=== PATIENT | female | born 1970 | race Caucasian/White ===

== ENCOUNTER → 2021-04-02 16:43 | Outpatient (CLI) | payer BC, SELFPAY ==
--- NOTE | ~2021-04-02 | MM_ITS ---
EXAMINATION: MM scrn benny implant BI w ela HISTORY: Screening mammogram TECHNIQUE: Craniocaudal and mediolateral oblique 3-D tomosynthesis images with implant displacement a nd synthetic 2-D images were generated. Craniocaudal and mediolateral oblique views of the breasts wi thout implant displacement were obtained using full field digital mammography. CAD analysis was submi tted and interpreted. COMPARISON: No prior mammogram is available for comparison at this institution. BREAST PARENCHYMAL COMPOSITION: There are scattered areas of fibroglandular density. FINDINGS: There are bilateral subpectoral breast implants. There is no evidence of suspicious mass, c alcification, or architectural distortion to suggest malignancy in either breast. There has been no s uspicious interval change. IMPRESSION: 1. No mammographic evidence of malignancy. 2. Recommend routine screening mammography in one year. BI-RADS Category 1: Negative Reviewed, dictated and finalized at location A.
== END ==
PROVIDERS: PCP Family Medicine; Visit Provider Nurse Practitioner
DX: Z12.31 Encounter for screening mammogram for malignant neoplasm of breast (principal)
CPT/HCPCS: 77063; 77067

== ENCOUNTER → 2021-05-21 16:49 | Outpatient (CLI) | payer BC, SELFPAY ==
--- NOTE | ~2021-05-21 | XR_ITS ---
EXAMINATION:XR cervical spine 4-5V, XR thoracic spine 3V DATE: 05/21/2021 17:47 INDICATION: Dorsalgia with tightness over the neck and back. TECHNIQUE: AP, lateral, lateral swimmers and odontoid views of the cervical spine are provided. COMPARISON: None FINDINGS: Cervical spine: Alignment is normal. Odontoid is intact. Normal atlantoaxial interval. Vertebral body heights are no rmal. Moderate disc height loss at C4-C5 and mild disc height loss at C5-C6, both with posterior endp late osteophytes resulting in mild central canal stenosis. Moderate bilateral uncovertebral osteoarth ritis at C4-C5 and mild uncovertebral osteoarthritis bilaterally at C3-C4 and C6-C7. Is also multilev el mild cervical facet osteoarthritis. Prevertebral soft tissues are normal. Thoracic spine: Minimal thoracic dextrocurvature. Sagittal alignment is normal. Vertebral body heights are normal. Mo derate disc height loss at T5-T6 through T8-T9 with mild disc height loss in the more cephalad and ca udal thoracic spine. Visualized portions of the lungs are clear. Cardiomediastinal silhouette is norm al. IMPRESSION: 1. Mild to moderate cervical and thoracic spondylosis. Reviewed, dictated and finalized at location A. IDOR REDEVELOPMENT MANAGER IMPRESSION: 1. Mild to moderate cervical and thoracic spondylosis.
--- NOTE | ~2021-05-21 | XR_ITS ---
EXAMINATION: XR foot RT min 3V DATE: 05/21/2021 17:47 INDICATION: Right foot pain TECHNIQUE: Dorsoplantar, two oblique and lateral views of the right foot were obtained. COMPARISON: None. FINDINGS: Alignment is normal. No fracture. Mild polyarticular osteoarthritis at the first metatarsophalangeal and a few tarsal metatarsal and interphalangeal joints. Moderate-sized Achilles and plantar calcaneal spurs. Additional enthesophytes at the lateral malleolus at the dorsal aspect of the navicula and he ad of the talus. Soft tissues are unremarkable. IMPRESSION: 1. Degenerative skeletal changes including mild polyarticular osteoarthritis in the mid and forefoot and scattered enthesophytes in the hindfoot. Reviewed, dictated and finalized at location A. ING LOT MANAGER
== END ==
PROVIDERS: PCP Physician Assistant; Visit Provider Physician Assistant
DX: M47.813 Spondylosis without myelopathy or radiculopathy, cervicothoracic region (principal)
CPT/HCPCS: 72050; 72072; 73630

== ENCOUNTER 2022-05-07 00:53 | Day surgery (SDC) | payer BC, SELFPAY ==
[2022-04-28 13:14] VITALS: BMI 33.2
--- NOTE | 2022-05-07 11:26 | PM.HPGS ---
History of Present Illness History of Present Illness Consent: Risks, benefits, and alternatives have been discussed and questions answered. Patient agrees to proceed with procedure. Chief complaint: neoplasm screening Narrative: Sintia Burch is a 51 year old female referred for colon cancer screening. Review of Systems Review of Systems: All systems reviewed & are unremarkable except as noted in HPI and below PMFSH Past Medical History Medical History Hypertension Surgical History Surgical History H/O gastric sleeve Family History Family History Grandparent Diabetes mellitus Cerebrovascular accident Mother Hypertension Family history of cardiovascular disease Father Depression Sibling Hypertension HLD (hyperlipidemia) Social History Social History Smoking status: Never smoker Second hand tobacco smoke exposure: No Alcohol intake: current Drinks per week: 2 Alcohol use details: seldom; socially Substance use: never Substance use type: does not use Living arrangements: with family Meds Home Medications and Allergies Home Medications Medication Instructions Recorded Confirmed Type calcium carbonate 500 mg calcium 500 mg PO DAILY 04/22/22 04/28/22 History (1,250 mg) chewable tablet (Calcium 500) [id number] 45 mg-folic 1 cap PO DAILY 04/22/22 04/28/22 History acid 800 mcg-vit K 120 mcg capsule (Bariatric Multivitamins) psyllium husk 3.4 gram/5.4 gram 1 tbsp PO ONCE PRN Constipation 04/22/22 04/28/22 History oral powder (Metamucil) cyclobenzaprine 10 mg tablet 10 mg PO .HS PRN Pain 04/28/22 04/28/22 History cyclobenzaprine 10 mg tablet 10 mg PO DAILY 04/28/22 04/28/22 History Allergies Allergy/AdvReac Type Severity Reaction Status Date / Time No Known Allergies Allergy Verified 05/07/22 12:15 Exam Const: General: alert Orientation/consciousness: patient oriented x3 Resp: Auscultation: clear to auscultation bilaterally Cardio: Rhythm: regular rhythm GI: GI Palp: Yes Soft to palpation and No Tenderness to palpation present (GI) Neuro: General: patient oriented x3 Assessment and Plan Assessment and plan (1) Colon cancer screening: Code(s): Z12.11 - Encounter for screening for malignant neoplasm of colon Status: Acute Assessment and Plan: Colonoscopy with possible biopsy or polypectomy or cautery or injection of substances.
[2022-05-07 12:16] VITALS: BP 150/82; PULSE 72; RESP 18; TEMP 36.1; O2SAT 97
--- NOTE | 2022-05-07 12:16 | P.PNAN_ITS ---
Anes - Initial Pre Proc Eval Procedure: Operation Date: 05/07/22 13:30 Proposed Procedures p Screening Colonoscopy - Jose Barber MD Date/Time: 05/07/22 12:16 Surgeon: Jose Barber MD Pre Op Diagnosis: neoplasm screening Patient Data Age: 51 Gender: F Height: 1.6 m Weight: 85 kg Allergies Allergy/AdvReac Type Severity Reaction Status Date / Time No Known Allergies Allergy Verified 05/07/22 12:15 Home Medications Medication Instructions Recorded Confirmed Type calcium carbonate 500 mg calcium 500 mg PO DAILY 04/22/22 04/28/22 History (1,250 mg) chewable tablet (Calcium 500) isjnfbtr-ciefsjvz-joee 45 mg-folic 1 cap PO DAILY 04/22/22 04/28/22 History acid 800 mcg-vit K 120 mcg capsule (Bariatric Multivitamins) psyllium husk 3.4 gram/5.4 gram 1 tbsp PO ONCE PRN Constipation 04/22/22 04/28/22 History oral powder (Metamucil) cyclobenzaprine 10 mg tablet 10 mg PO .HS PRN Pain 04/28/22 04/28/22 History cyclobenzaprine 10 mg tablet 10 mg PO DAILY 04/28/22 04/28/22 History Patient hx anesthesia problems: none Family hx anesthesia problems: none Results Review: All pre-operative results and documents have been reviewed as part of the pre- operative evaluation. [facility] Past Medical History Medical History Hypertension Surgical History Surgical History H/O gastric sleeve Family History Family History Grandparent Diabetes mellitus Cerebrovascular accident Mother Hypertension Family history of cardiovascular disease Father Depression Sibling Hypertension HLD (hyperlipidemia) Social History Social History Smoking status: Never smoker Second hand tobacco smoke exposure: No Alcohol intake: current Drinks per week: 2 Alcohol use details: seldom; socially Substance use: never Substance use type: does not use Living arrangements: with family Anes - Eval Final PreProcedure Day of Procedure 05/07/22 12:16 Patient weight: normal Heart: regular rate and rhythm Lungs: clear to auscultation Airway: Mallampati scale class II Neurological: alert and oriented Last oral intake: >/= 8 hours ASA classification: II Emergent: no Anesthetic plan: proceed Anesthesia type and monitoring: general GIVS and standard monitoring Results Review: All pre-operative results and documents have been reviewed as part of the pre- operative evaluation. Informed Consent: The patient's anesthetic plan and its attendant risks and benefits were discussed with the patient/family/POA. Questions were solicited and answers provided to the satisfaction of the patient/family/POA.
[2022-05-07] MEDS: LACTATED RINGERS 1,000 ML 150 ML IV CONT (12:33)
--- NOTE | 2022-05-07 12:36 | SUR.PREOP ---
DR WOODALL NOTIFIED PT UNABLE TO PROVIDE URINE SAMPLE FOR TEST, PT HAS IUD, PT STATES HAS HAD A VASECTOMY. PER DR WOODALL NO NEED FOR URINE TEST.
[2022-05-07 13:19] VITALS: BP 106/63; PULSE 77; RESP 17; O2SAT 100
[2022-05-07 13:29] VITALS: BP 119/65; PULSE 78; RESP 20; O2SAT 100
[2022-05-07 13:39] VITALS: BP 131/69; PULSE 78; RESP 21; O2SAT 100
== END 2022-05-07 13:42 | disposition home or self-care (01) ==
PROVIDERS: PCP Family Medicine; Visit Provider Internal Medicine Gastroenterology
PROC: 0DJD8ZZ Inspection of Lower Intestinal Tract, Via Natural or Artificial Opening Endoscopic (ICD-10-PCS; CPT 45378; principal; 2022-05-07 13:30)
DX: Z12.11 Encounter for screening for malignant neoplasm of colon (principal); Z98.84 Bariatric surgery status
CPT/HCPCS: 45378; J2704; J7120

== ENCOUNTER → 2022-06-01 12:15 | Outpatient (CLI) | payer BC, SELFPAY ==
--- NOTE | ~2022-06-01 | MM_ITS ---
EXAMINATION: MM scrn benny implant BI w ela HISTORY: Screening mammogram TECHNIQUE: Craniocaudal and mediolateral oblique 3-D tomosynthesis images with implant displacement a nd synthetic 2-D images were generated. Craniocaudal and mediolateral oblique views of the breasts wi thout implant displacement were obtained using full field digital mammography. CAD analysis was submi tted and interpreted. COMPARISON: 04/02/2021 BREAST PARENCHYMAL COMPOSITION: There are scattered areas of fibroglandular density. FINDINGS: There is no evidence of suspicious mass, calcification, or architectural distortion to sugg est malignancy in either breast. There has been no suspicious interval change. IMPRESSION: 1. No mammographic evidence of malignancy. 2. Recommend routine screening mammography in one year. BI-RADS Category 1: Negative Reviewed, dictated and finalized at location A. ING MACHINE OPERATOR
== END ==
PROVIDERS: PCP Family Medicine; Visit Provider Nurse Practitioner
DX: Z12.31 Encounter for screening mammogram for malignant neoplasm of breast (principal)
CPT/HCPCS: 77063; 77067

== ENCOUNTER → 2023-07-28 11:32 | Outpatient (CLI) | payer OTHER, SELFPAY ==
--- NOTE | ~2023-07-28 | MM_ITS ---
EXAMINATION: MM scrn benny implant BI w ela HISTORY: Screening mammogram TECHNIQUE: Craniocaudal and mediolateral oblique 3-D tomosynthesis images with implant displacement a nd synthetic 2-D images were generated. Craniocaudal and mediolateral oblique views of the breasts wi thout implant displacement were obtained using full field digital mammography. CAD analysis was submi tted and interpreted. COMPARISON: 06/01/2022, 04/02/2021 BREAST PARENCHYMAL COMPOSITION: There are scattered areas of fibroglandular density. FINDINGS: There is no evidence of suspicious mass, calcification, or architectural distortion to sugg est malignancy in either breast. There has been no suspicious interval change. IMPRESSION: 1. No mammographic evidence of malignancy. 2. Recommend routine screening mammography in one year. BI-RADS Category 1: Negative Reviewed, dictated and finalized at location A. OMER RESOURCE SPECIALIST
== END ==
PROVIDERS: PCP Nurse Practitioner; Visit Provider Nurse Practitioner
DX: Z12.31 Encounter for screening mammogram for malignant neoplasm of breast (principal)
CPT/HCPCS: 77063; 77067

== ENCOUNTER 2024-08-02 14:25 | Outpatient (CLI) | payer OTHER, SELFPAY ==
--- NOTE | ~2024-08-02 | MM_ITS ---
EXAMINATION: MM scrn benny implant BI w ela HISTORY: Screening mammogram TECHNIQUE: Craniocaudal and mediolateral oblique 3-D tomosynthesis images with implant displacement a nd synthetic 2-D images were generated. Craniocaudal and mediolateral oblique views of the breasts wi thout implant displacement were obtained using full field digital mammography. CAD analysis was submi tted and interpreted. COMPARISON: No prior mammogram is available for comparison at this institution. BREAST PARENCHYMAL COMPOSITION: Not dense: There are scattered areas of fibroglandular density. FINDINGS: There is no evidence of suspicious mass, calcification, or architectural distortion to sugg est malignancy in either breast. There has been no suspicious interval change. IMPRESSION: 1. No mammographic evidence of malignancy. 2. Recommend routine screening mammography in one year. BI-RADS Category 1: Negative Reviewed, dictated and finalized at location A. ROLL LATHE OPERATOR
== END 2024-08-02 14:26 | disposition home or self-care (01) ==
LOC: MICIMG 14:27
PROVIDERS: PCP Nurse Practitioner; Visit Provider Nurse Practitioner Women's Health
DX: Z12.31 Encounter for screening mammogram for malignant neoplasm of breast (principal)
CPT/HCPCS: 77063; 77067

== ENCOUNTER 2025-05-01 09:10 | Outpatient (CLI) | payer OTHER, SELFPAY ==
--- OUTSIDE RECORDS SUMMARY | 2000-07-05 09:45 | XMS_ITS | Continuity of Care Document ---
Author Organization [facility] Address [address] [place] [address] Phone Care Team Providers Care Stone Driller Helper Name Role Phone Ji Alejandro DO Unavailable Unavailable Advance Directives Directive Yes / No Effective Date File Name No Information Encounters Encounter Description Practice Location Reason(s) For Visit Diagnoses Date Provider Providers Copied on Encounter [facility], [address], [place], [place], [id number], [place] tel:[phone] [facility] No Information Flavia Botello. [address] [facility], [place], [address], [place]. tel: [phone] Family History Family Member Type Diagnosis Age At Onset No Information Payers Payer name Insurance type Covered alliance party ID Authoriza tion(s) No Information Social History Type Description Quantity Date Captured Comments Sex Female Smoking Status No Information Chief Complaint And Reason For Visit No Information Reason For Referral Reason For Referral No Information History Of Present Illness Encounter Date Complaint History Of Prese nt Illness No Information Functional Status Date Functional Assessmen t No Information Instructions Date Instruction Additional Infor mation No Information Assessments Type Assessment Date No Information Patient Care Teams Name Effective Dates (start - stop) Status Members No Information
--- NOTE | ~2025-05-01 | CT_ITS ---
EXAMINATION: CTA chest PE protocol, 05/01/2025 9:35 CDT HISTORY: I82.402 - Acute embolism and thrombosis of unspecified de... COMPARISON: No comparisons available. TECHNIQUE: CTA examination is obtained with contrast CTA examination technique is performed with arterial phase of contrast-enhancement. 3-D reconstruction with thin MIP axial and MPR coronal imaging is provided Isovue 300, 92cc injected IV. One or more of the following dose reduction techniques were used: automated exposure control, adjustment of the mA and/or kV according to patient size, use of iterative reconstruction technique. FINDINGS: No significant coronary calcification is present ([id number]) LUNGS: No tracheomalacia. No bronchiectasis. Minimal emphysematous changes. Minimal pulmonary fibrotic changes. No honeycombing is identified. Minimal atelectasis noted in the right lower lobe. HEART AND PERICARDIUM: Mild cardiomegaly. AORTA: Normal caliber aorta.. PULMONARY ARTERIES: Contrast bolus adequate, there is subsegmental thrombus noted within the subsegmental branches of the right lower lobe, the thrombus appears peripherally in location and may be chronic, RV LV ratio 1.0. ADENOPATHY/MEDIASTINUM: None. LIMITED VIEWS OF THE ABDOMEN: Small hiatal hernia. Postsurgical changes noted in the stomach. OSSEOUS STRUCTURES: No sclerotic or lytic lesions. OVERLYING SOFT TISSUES: Partially imaged bilateral breast implants. THYROID: The thyroid is unremarkable. IMPRESSION: 1. Right lower lobe pulmonary embolism possibly chronic. Correlate clinically. Results called to the referring clinicians number immediately. The patient was sent to the ED Reviewed, dictated and finalized at location P.
[2025-05-01 09:39] LABS: Estimated Glomerular Filt Rate > 60
--- OUTSIDE RECORDS SUMMARY | 2025-05-01 09:59 | XMS_ITS | Clinical Summary ---
Author Organization [facility] Address [address] [place] [address] Care Team Providers Care Emd Special Education Teacher Name Role Phone Unavailable Primary Care Provider Unavailabl e Social History Tobacco Use Types Packs/Day Years Used Date Smoking Tobacco: Never Assessed Comments Unknown Sex and Gender Information Value Date Recorded Sex Assigned at Not on file Legal Sex Female 6:56 PM CDT Gender Identity Not on file Sexual Orientation Not on file Last Filed Vital Signs Vital Sign Reading Time Taken Comments Blood Pressure 122/78 08/29/2012 4:01 PM BOTTOM POLISHER Pulse 68 08/29/2012 4:01 PM BOTTOM POLISHER Temperature - - Respiratory Rate - - Oxygen Saturation - - Inhaled Oxygen Concentration - - Weight 98 kg (216 lb) 08/29/2012 4:01 PM BOTTOM POLISHER Height 161.3 cm (5' 3.5) 08/29/2012 4:01 PM BOTTOM POLISHER Body Mass Index 37.66 08/29/2012 4:01 PM BOTTOM POLISHER Plan of Treatment Health Maintenance Due Date Last Done Comments Cervical Cancer Screening Pa p Smear (Age 30 to 64) Every 3 Years 1972 Colorectal Cancer Screening Colonoscopy (10 Years) 1972 Annual Physical 1975 Hepatitis C 1990 DTaP, Tdap and Td Vaccines ( 1 - Tdap) 1991 Hepatitis B Vaccines (1 of 3 - 19+ 3-dose series) 1991 Cervical Cancer Screening Pa p with HPV Testing (Age 30 to 64) Every 5 Years 2002 Cervical Cancer Screening with HPV 2002 Mammogram Screening 2012 Pneumococcal Vaccine: 50+ Ye ars (1 of 1 - PCV) 2022 Zoster Vaccines (1 of 2) 2022 COVID-19 Vaccine (2024-2 6 season) 2025 Influenza Adult (#1) 2025 Hepatitis A Vaccines Aged Out No long er eligible based on patient's age to complete this topic Meningococcal B Vaccine Aged Out No l onger eligible based on patient's age to complete this topic Meningococcal Vaccine Aged Out No héctor elmer eligible based on patient's age to complete this topic RSV Immunizations Under 20 Months Aged Out No longer eligible based on patient's age to complete this topic
--- OUTSIDE RECORDS SUMMARY | 2025-05-01 09:59 | XMS_ITS | Clinical Summary ---
Author Organization [facility] Address [address] [place] [address] Care Team Providers Care Construction Specialist Name Role Phone Ifrah Lerma MD Primary Care Provider [phone] Source Comments [facility],non-owned Affiliates and Associated Physician Practices is amultiple site organization consisting of ambulatory clinics and hospital sitesin [place], [place], [place] and [place]. This disclosure is being madepursuant to the Care Everywhere program and may not contain all information available regarding this patient. Last updated 18.[facility] Allergies No known active allergies Medications * Be aware that medications may not be up to date on this document. Alwaysverify current medications with the patient. cyclobenzaprine (Flexeril) 10 MG tablet TAKE 1 TABLET BY MOUTH AT BEDTIME NEEDED FOR PAIN 02/07/2023 Active Active Problems Problem Noted Date Diagnosed Date Morbid obesity due to excess calories 03/31/2020 Family History Medical History Relation Name Comments Other Mother obesity Cancer - Ovarian Other aunt Relation Name Status Comments Father Alive Mother Alive Other aunt Alive Social History Tobacco Use Types Packs/Day Years Used Date Smoking Tobacco: Never Smokeless Tobacco: Never Alcohol Use Standard Drinks/Week Comments Yes 0 (1 standard drink = 0.6 oz pur e alcohol) occas Comments No Sex and Gender Information Value Date Recorded Sex Assigned at Female 03/26/2021 5:29 PM CDT Legal Sex Female 6:[address] Gender Identity Female 03/26/2021 5:29 PM CDT Sexual Orientation Straight 03/26/2021 5: 29 PM CDT Last Filed Vital Signs Vital Sign Reading Time Taken Comments Blood Pressure 120/82 04/08/2020 10:53 AM CDT Pulse 87 04/08/2020 10:53 AM CDT Temperature 36.9 C (98.5 F) 04/08/2020 10:53 AM CDT Respiratory Rate 18 04/01/2020 11:18 AM CDT Oxygen Saturation 98% 04/08/2020 10:53 AM CDT Inhaled Oxygen Concentration - - Weight 76.2 kg (168 lb) 04/01/2021 12:44 PM CDT Height 158 cm (5' 2.2) 04/01/2021 12:44 PM CDT Body Mass Index 30.53 04/01/2021 12:44 PM CDT Plan of Treatment Health Maintenance Due Date Last Done Comments COLOGUARD (AGES 45-75) - COL ON CA SCREENING 1972 COLON MONITORING 1972 COLONOSCOPY - COLON CA SCREENING 1972 CT COLONOGRAPHY - COLON CA SCREENING 1972 Colorectal Cancer Screening 1972 FIT - COLON CA SCREENING 1972 FLEX SIG - COLON CA SCREENING 1972 LIPID TESTING 1972 MAMMOGRAM 1972 HIV SCREENING 1987 HEPATITIS C SCREENING 08/14/1990 DTAP/TDAP/TD VACCINES (1 - Tdap) 1991 HEPATITIS B VACCINE (1 of 3 - 19+ 3-dose series) 1991 PAP SMEAR 1993 PNEUMOCOCCAL VACCINE 50+ (1 of 1 - PCV) 2022 ZOSTER VACCINE (1 of 2) 2022 DEPRESSION SCREENING 07/04/2024 COVID-19 VACCINE (1 - 2023-2 5 season) 2025 INFLUENZA VACCINE (#1) 2025 HIB VACCINE Aged Out No longer eligi ble based on patient's age to complete this topic HPV VACCINE Aged Out No longer eligi ble based on patient's age to complete this topic MENINGOCOCCAL (Group B) VACC INE SHARED DECISION-MAKING Aged Out No longer eligibl e based on patient's age to complete this topic MENINGOCOCCAL GROUPS A/C/Y/W VACCINE Aged Out No longer eligible b ased on patient's age to complete this topic Insurance [employer] Advance Directives * Full Code (Latest Code Status on File) Date Activated Date Inactivated Comments 03/31/2020 11:10 AM 04/01/2020 4:58 PM Care Teams Construction Specialist Relationship Specialty Start Date End Date Ifrah Lerma MD [address] [place] [address] PCP - General Family Medicine 06/06/19
--- OUTSIDE RECORDS SUMMARY | 2025-05-01 09:59 | XMS_ITS | Clinical Summary ---
Author Organization [address] Address [address] [place] [id number] Care Team Providers Care School Transportation Director Name Role Phone Ifrah Lerma MD Primary Care Provider [phone] Allergies No known active allergies Medications polyethylene glycol (MIRALAX) 17 gram/dose powder Take by mouth daily Active RIVAROXABAN 15 MG (42)-20 MG (9) TABLETS IN A STARTER PACKIndications: Popliteal vein thrombosis, right (HCC) Take 15 mg (1 tablet) TWICE a day for 21 days, then take 20 mg (1 tablet) once a day thereafter. 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 09/02 Morbid obesity due to excess calories 03/31/2020 Encounters Date Type Department Care Team Description 04/22/2025 7:37 PM CDT - 04/22/2025 8:33 PM CDT Emergency [facility] Emergency Department [address] [place] [address] Clay Virk MD Popliteal vein thrombosis, right (HCC) (Primary Dx) Discharge Disposition: Discharge to home or self care 03/29/2025 10:55 AM CDT - 03/29/2025 11:59 PM CDT Hospital Encounter [facility] Cardiology [address] [place] [address] Essential (primary) hypertension Discharge Disposition: Discharge to home or self care from Last 3 Months Surgical History Surgery Date Site/Laterality Comments SECTION 04/15/93; 04/13/96; 12/29/1999 BREAST SURGERY 07/04/2017 - 07/03/2018 REVISION GASTRIC RESTRICTIVE PROCEDURE FOR MORBID OBESITY 07/04/2019 - 07/03/2020 GASTRIC SLEEVE Medical History Medical History Date Comments H/O: HTN (hypertension) Social History Tobacco Use Types Packs/Day Years Used Date Smoking Tobacco: Never Smokeless Tobacco: Never Personal Safety Answer Date Recorded Have you ever been in or are you currently in a harmful physical or emotional relationship or is someone making you feel afraid or unsafe? 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 Gender Identity Not on file Sexual Orientation Not on file Obstetrics History Last Filed Vital Signs Vital Sign Reading Time Taken Comments Blood Pressure 125/82 04/22/2025 8:30 PM CDT Pulse 72 04/22/2025 8:30 PM CDT Temperature 36.8 C (98.2 F) 04/22/2025 6:58 PM CDT Respiratory Rate 16 04/22/2025 6:58 PM CDT Oxygen Saturation 98% 04/22/2025 8:30 PM CDT Inhaled Oxygen Concentration - - Weight 91.6 kg (202 lb) 04/22/2025 5:09 PM CDT Height 160 cm (5' 3) 12/06/2023 6:06 PM CDT Body Mass Index 35.78 12/06/2023 6:06 PM CDT Plan of Treatment Health Maintenance Due Date Last Done Comments Breast Cancer Screening-Mammogram 1972 Cervical Cancer Screening 1972 Colon Cancer Screening-Colonoscopy 1972 Depression Screening 1972 Hepatitis C Screening 1972 DTaP/Tdap/Td Vaccine (1 - Tdap) 1983 Hepatitis B Screening 1990 Regular Well Visit/Exam 18-64 1990 Zoster Vaccine (1 of 2) 2022 Influenza Vaccine (#1) 2025 Pneumococcal vaccine <65 Aged Out No longer eligible based on patient's age to complete this topic Procedures Procedure Name Priority Date/Time Associated Diagnosis Comments US VEIN DUPLEX LOWER EXTREMITY RIGHT LIMITED ED 04/22/2025 6:18 PM CDT ECG 12-LEAD Routine 03/29/2025 11:03 AM CDT Essential (primary) hypertension from Last 3 Months Results * US VEIN DUPLEX LOWER EXTREMITY RIGHT LIMITED, UNILATERAL (04/22/2025 6:18 PM CDT) Anatomical Region Laterality Modality Vascular Right Ultrasound 04/22/2025 6:20 PM CDT Narrative 04/22/2025 6:30 PM CDT EXAM DESCRIPTION: US VEIN DUPLEX LOWER EXTREMITY RIGHT LIMITED, UNILATERAL REASON FOR STUDY: Sent by PCP to rule out DVT TECHNIQUE: Duplex scan using the B-mode, spectral Doppler, and color-flow Doppler of the deep venous system of the right lower extremity was performed. Images stored on PACS. COMPARISON: None FINDINGS: Lack of compressibility is questioned in the popliteal vein and the greater saphenous vein. There is some flow evident in these veins. The femoral, common femoral and calf veins appear to be patent. The peroneal vein is not well seen. IMPRESSION: Findings are concerning for nonocclusive thrombus within the greater saphenous and popliteal veins. THIS IS AN ELECTRONICALLY VERIFIED FINAL REPORT 04/22/2025 6:30 PM - Electronically signed by Jose Angel Villarreal M.D. KH: RONAL Report ID: [id number] Reading Location: [id number] Procedure Note Jose Angel Villarreal MD - 04/22/2025 EXAM DESCRIPTION: US VEIN DUPLEX LOWER EXTREMITY RIGHT LIMITED,UNILATERAL REASON FOR STUDY: Sent by PCP to rule out DVT TECHNIQUE: Duplex scan using the B-mode, spectral Doppler, and color-flow Doppler of the deep venous system of the right lower extremity was performed. Images stored on PACS. COMPARISON: None FINDINGS: Lack of compressibility is questioned in the popliteal vein and thegreater saphenous vein. There is some flow evident in these veins. The femoral, common femoral and calf veins appear to be patent. The peroneal vein isnot well seen. IMPRESSION: Findings are concerning for nonocclusive thrombus within the greater saphenous and popliteal veins. THIS IS AN ELECTRONICALLY VERIFIED FINAL REPORT 04/22/2025 6:30 PM - Electronically signed by Jose Angel Villarreal M.D. KH: RONAL Report ID: [id number] Reading Location: [place] [address] [place] [facility] HDEZ IMG US PROCEDURES Final Resu lt * ECG 12 lead (03/29/2025 11:03 AM CDT) 03/29/2025 11:0 1 AM CDT Narrative [facility] - 03/29/2025 12:13 PM CDT Vent Rate: 59 bpm RR Interval: 1008 msec RI Interval: 160 msec QRS Duration: 72 msec QT Interval: 366 msec QTC Interval: 365 msec P-R-T [place]: 34 - -2 - -39 degrees IMPRESSION: SINUS BRADYCARDIA NONSPECIFIC T-WAVE ABNORMALITY BORDERLINE ECG Electronically Signed By: Jamil Balderas MD [facility] Ifrah Lerma MD ECG ORDERABLES Final Result [facility] from Last 3 Months Insurance [facility] OPEN ACCESS Care Teams School Transportation Director Relationship Specialty Start Date End Date Ifrah Lerma MD [address] [place] [address] PCP - General Family Medicine 04/22/25
== END 2025-05-01 09:11 | disposition home or self-care (01) ==
DX: I82.402 Acute embolism and thrombosis of unspecified deep veins of left lower extremity (principal); R05.9 Cough, unspecified; I82.811 Embolism and thrombosis of superficial veins of right lower extremity
CPT/HCPCS: 71275; Q9967

== ENCOUNTER 2025-05-01 10:21 | Observation (INO) | payer OTHER, SELFPAY ==
--- OUTSIDE RECORDS SUMMARY | 2000-07-05 09:45 | XMS_ITS | Continuity of Care Document ---
Author Organization [facility] Address [address] [place] [address] Phone Care Team Providers Care Wood Milling Machine Tender Name Role Phone Ji Alejandro DO Unavailable Unavailable Advance Directives Directive Yes / No Effective Date File Name No Information Encounters Encounter Description Practice Location Reason(s) For Visit Diagnoses Date Provider Providers Copied on Encounter [facility], [address], [place], [place], [id number], [place] tel:[phone] [facility] No Information Flavia Botello. [address] [facility], [place], [address], [place]. tel: [phone] Family History Family Member Type Diagnosis Age At Onset No Information Payers Payer name Insurance type Covered republican ID Authoriza tion(s) No Information Social History [...]
[2025-05-01] VITALS (8 sets, daily range): BP systolic 117–159; BP diastolic 74–99; PULSE 60–72; RESP 16–20; TEMP 36.5–36.9; O2SAT 93–100; BMI 37.5; BMI 36.5
--- NOTE | ~2025-05-01 | US_ITS ---
BILATERAL LOWER EXTREMITY VENOUS DUPLEX Clinical History: Patient has PE/dvt . Comparison: None. Technique: Grayscale, color, duplex/spectral Doppler sonography bilateral lower extremities. Findings: Bilateral common femoral, femoral, popliteal, and calf veins compressible and color Doppler patent. Normal augmentation with distal compression. No internal echoes. Thrombus right greater and lesser saphenous veins. IMPRESSION: 1. No DVT either leg. 2. Right greater and lesser saphenous vein thrombus. Reviewed, dictated and finalized at location R.
--- NOTE | 2025-05-01 10:59 | ED.RECABL ---
HPI - Recheck/Abnormal Lab/Rx General Chief Complaint: Recheck/Abnormal Lab/Rx Stated Complaint: ct scan showed PE Time Seen by Provider: 05/01/25 10:51 Source: patient Mode of arrival: ambulatory Limitations: no limitations History of Present Illness HPI narrative: Janet is a 54-year-old female patient presenting to the emergency room today with complaints of a dry cough for the past few days. She saw her PCP yesterday and they ordered a CT scan to rule out PE as she recently had a right side blood clot. CTA chest was done today and shows right lower lobe PE. Patient had tummy tuck surgery on April 08. Was dx with DVT 1.5 weeks ago. She was started on Xeralto-starter pack and has taken 6 days of the Rx. She currently denies any chest pain or shortness of breath. Related Data Home Medications ?Medication ?Instructions ?Recorded ?Confirmed ?Last Taken ?Type rivaroxaban 15 mg tablet (Xarelto) 15 mg PO BID 04/30/25 04/30/25 Unknown History Allergies Allergy/AdvReac Type Severity Reaction Status Date / Time No Known Allergies Allergy Verified 05/01/25 10:25 Review of Systems Review of Systems: Pertinent positives per HPI. Patient denies any fever, chills, rash, headache, visual changes, dizziness, cough, shortness of breath, chest pain, palpitations, nausea, vomiting, diarrhea, constipation, abdominal pain, or any urinary issues. [facility] Past Medical History Medical History Hypertension Surgical History Surgical History H/O abdominoplasty (~04/08/25) H/O gastric sleeve Family History Family History Grandparent Diabetes mellitus Cerebrovascular accident Mother Hypertension Family history of cardiovascular disease Father Depression Sibling Hypertension HLD (hyperlipidemia) Social History Social History Smoking status: Never smoker Second hand tobacco smoke exposure: No Alcohol intake: current Drinks per week: 2 Alcohol use details: seldom; socially Substance use: never Substance use type: does not use Lack of Transportation: No Lack of Food: Never True Current Housing: I Have Housing Concerned About Future Housing: No Difficulty Paying Gas/Electric Bills: No Difficulty Paying for Meds: No Currently Unemployed: No Education: Decline to Answer Difficulty w/ Childcare or Family Care: No Living arrangements: with family Occupation/Education: occupation Gender identity (if verbalized by the patient): Female Spiritual care concerns: No Agree to blood products: Yes Comments At the time of my signature, I reviewed and agree with the nursing past medical, surgical, social, and family history. There is no relevant family history pertinent to the patient complaint. Exam Narrative: General: Well-developed, well nourished, in no apparent distress Head: Normocephalic, atraumatic Eyes: Pupils equally round and reactive to light bilaterally, EOM intact, sclera and conjunctive clear, no discharge, lids normal Ears: TMs intact and clear, ear canals clear, no drainage, grossly hearing normal. Nose: Nares patent, no discharge, no inflammation, no sinus tenderness. Mouth: Oral pharynx without lesions or masses, good dentition, MMM. Neck: Supple, trachea midline, no enlargement of anterior or posterior cervical nodes, no thyroid masses or goiter palpable. Cardio: Regular rate and rhythm, s1 and s2 normal, no murmur appreciated. Resp: Clear to auscultation bilaterally, no rhonchi, rales, wheezing or rubs Musculoskeletal: No deformity, non-tender to palpation, grossly normal range of motion, muscle strength strong and equal, peripheral pulse strong, no pitting edema, no cyanosis, normal gait and station Course Course Emergency Course: Portions of this record may have been created with voice recognition software. Vital Signs Vital signs: Vital Signs Temperature 36.6 C 05/01/25 10:27 Pulse Rate 69 05/01/25 10:27 Respiratory Rate 16 05/01/25 10:27 Blood Pressure 159/99 H 05/01/25 10:27 Pulse Oximetry 99 05/01/25 10:27 Temperature 36.6 C 05/01/25 10:27 Pulse Rate 70 05/01/25 15:01 Respiratory Rate 20 05/01/25 15:01 Blood Pressure 146/84 H 05/01/25 15:01 Pulse Oximetry 100 05/01/25 15:01 Vital signs reviewed MDM - Recheck/Abnormal Lab/Rx MDM Narrative Medical decision making narrative: At the time of visit patient is resting comfortably on the exam table. Patient appears to be nontoxic. Complaints of a dry cough for the past few days. She saw her PCP yesterday and they ordered a CT scan to rule out PE as she recently had a right side blood clot. CTA chest was done today and shows right lower lobe PE. Patient had tummy tuck surgery on April 08. Was dx with DVT 1.5 weeks ago. She was started on Xeralto-starter pack and has taken 6 days of the Rx. She currently denies any chest pain or shortness of breath. Labs: CBC shows white blood cell count was 6.2, H&H of 12.3 and 36.4, platelet count was 192, PT was 16.9, INR 1.4, APTT is 31.4 chemistry has normal electrolytes, BUN of 13, creatinine 0.69, GFR greater than 60, for function test within normal limits, Diagnostics: CTA chest to R/O PE shows right lower lobe pulmonary embolism possibly chronic. Correlate clinically. Bilateral Venous Doppler study was performed and was negative for any DVT of the left lower extremity, shows a thrombus and the right saphenous vein. Medications: Lovenox 90 given in the ED Plan: Patient has PE in the right lower lobe as well as a thrombus to the right saphenous vein. Discussed patient's case with Dr. Caldwell. Recommend admission for 23 hour observation and giving the patient Lovenox every 12 hours. Discussed patient's case with Albert-hospitalist and she accepts patient to med/surg with tele. Patient notified of results and agrees to admission. Differential Diagnosis Differential diagnosis: Likely other (PE, DVT, URI) Lab Data 05/01/25 11:25 05/01/25 11:25 Labs: Lab Results 05/01/25 05/01/25 Range/Units 11:25 11:26 WBC 6.2 (4.5-10.0) K/mm3 RBC 4.03 L (4.2-5.4) M/mm3 Hgb 12.3 (12.0-15.0) g/dL Hct 36.4 L (37.0-47.0) % MCV 90.3 (80-100) fl MCH 30.5 (26-34) pg MCHC 33.8 (32-36) g/dl RDW 12.9 (11.5-14.5) % Plt Count 192 (150-375) k/mm3 MPV 11.5 H (7.4-10.4) fl Immature Gran % (Auto) 0.5 (0-0.5) % Neut % (Auto) 71.0 (45.5-73.1) % Lymph % (Auto) 17.7 L (18.3-44.2) % Merrick % (Auto) 8.7 H (2.6-8.5) % Eos % (Auto) 1.8 (0-4.4) % Baso % (Auto) 0.3 (0.2-1.2) % Lymph # (Auto) 1.10 (0.9-3.2) K/mm3 [place] # (Auto) 0.5 (0.1-0.6) K/mm3 Eos # (Auto) 0.1 (0-0.3) K/mm3 Baso # (Auto) 0.0 (0.0-0.1) K/mm3 Abs Immat Gran (auto) 0.03 (0.00-0.031) K/mm3 Absolute Neuts (auto) 4.4 (1.3-6.7) K/mm3 Absolute Nucleated RBC 0.000 (0.0-0.012) K/mm3 Nucleated RBC % 0.0 (0.0-0.2) % PT 16.9 H (11.1-14.7) Seconds INR 1.4 APTT 31.4 (22.3-36.8) Seconds Sodium 137 (137-145) mmol/L Potassium 3.7 (3.4-5.0) mmol/L Chloride 103 (98-107) mmol/L Carbon Dioxide 28 (22-30) mmol/L Anion Gap 6 (4-12) mmol/L BUN 13 (7-17) mg/dL Creatinine 0.69 L (0.7-1.0) mg/dL Estim Creat Clear Calc 89 ml/min Estimated GFR > 60 (59 - ) Glucose 88 (65-110) mg/dL Calcium 8.8 (8.4-10.2) mg/dL Total Bilirubin 0.8 (0.2-1.3) mg/dL AST 21 (14-36) U/L ALT 20 (6-35) U/L Alkaline Phosphatase 85 (38-126) U/L Total Protein 6.7 (6.3-8.2) g/dL Albumin 4.0 (3.5-5.1) g/dL Discharge Plan Discharge Clinical Impression: Pulmonary embolism, Thrombosis of right saphenous vein Patient Disposition: Still a Patient Condition: Stable Time of Disposition: 13:54 Quality NIHSS Nursing Documentation ED NIHSS nursing documentation: reviewed/agree
--- NOTE | 2025-05-01 11:27 | ECG_ITS ---
Test Date: 2025-05-01 11:35:17 Measurements Intervals [place] Rate: 57 P: 26 MI: 154 QRS: -5 QRSD: 90 T: -13 QT: 418 QTc: 410 Interpretive Statements SINUS BRADYCARDIA BORDERLINE R WAVE PROGRESSION, ANTERIOR LEADS CONSIDER INFERIOR INFARCT, AGE INDETERMINATE T WAVE ABNORMALITY IN ANTERIOR LEADS- CONSIDER ISCHEMIA ABNORMAL ECG No previous ECG available for comparison Electronically Signed On 05-01-2025 11:59:22 CDT by Jayjay Serna D.O.
[2025-05-01 11:35] LABS: Hematocrit 36.4 % (37.0-47.0); Hemoglobin 12.3 g/dL (12.0-15.0); Immature Granulocyte Percent A 0.5 % (0-0.5); Lymphocytes Absolute Auto 1.10 K/mm3 (0.9-3.2); Mean Corpuscular HGB Conc 33.8 g/dl (32-36); Mean Corpuscular Hemoglobin 30.5 pg (26-34); Mean Corpuscular Volume 90.3 fl (80-100); Nucleated Red Blood Cells Absolute Auto 0.000 K/mm3 (0.0-0.012); Nucleated Red Blood Cells Perc 0.0 % (0.0-0.2); Platelet Count Result 192 k/mm3 (150-375); Red Blood Count 4.03 M/mm3 (4.2-5.4); White Blood Count 6.2 K/mm3 (4.5-10.0)
--- OUTSIDE RECORDS SUMMARY | 2025-05-01 11:38 | XMS_ITS | Clinical Summary ---
Author Organization [address] Address [address] [place] [id number] Care Team Providers Care Police Stenographer Name Role Phone Ifrah Lerma MD Primary Care Provider [phone] Allergies No known active allergies Medications polyethylene [...] CDT - 04/22/2025 8:33 PM CDT Emergency [facility] Emergency Department 1 [place] [address] Clay Virk MD Popliteal vein thrombosis, right (HCC) (Primary Dx) Discharge Disposition: Discharge to home or self care 03/29/2025 10:55 AM CDT - 03/29/2025 11:59 PM CDT Hospital Encounter [facility] Cardiology 1 [place] [address] Essential (primary) hypertension Discharge Disposition: Discharge to [...] on file 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 KH: RONAL Report ID: [id number] Reading Location: [id number] Procedure Note Jose Angel Villarreal MD - [...] Angel Villarreal M.D. KH: RONAL Report ID: [id number] Reading Location: [place] [address] [place] [facility] HDEZ IMG US PROCEDURES Final Resu lt * ECG 12 lead (03/29/2025 11:03 AM CDT) 03/29/2025 11:0 1 AM CDT Narrative [facility] - 03/29/2025 12:13 PM CDT Vent Rate: 59 bpm RR Interval: 1008 msec [place] Interval: 160 msec QRS Duration: 72 msec QT Interval: 366 msec QTC Interval: 365 msec P-R-T [place]: 34 - -2 - -39 degrees IMPRESSION: SINUS BRADYCARDIA NONSPECIFIC T-WAVE ABNORMALITY BORDERLINE ECG Electronically Signed By: Jamil Bladeras MD [facility] Ifrah Lerma MD ECG ORDERABLES Final Result [facility] from Last 3 Months Insurance [facility] OPEN ACCESS Care Teams Police Stenographer Relationship Specialty Start Date End Date Ifrah Lerma MD [address] [place] [address] PCP - General Family Medicine 04/22/25
--- OUTSIDE RECORDS SUMMARY | 2025-05-01 11:38 | XMS_ITS | Clinical Summary ---
Author Organization [facility] Address [address] [place] [id number] Care Team Providers Care Lot Technician Name Role Phone Unavailable Primary Care Provider [...] Comments Blood Pressure 122/78 08/29/2012 4:01 PM CAREERS ADVISER Pulse 68 08/29/2012 4:01 PM CAREERS ADVISER Temperature - - Respiratory Rate - - Oxygen Saturation - - Inhaled Oxygen Concentration - - Weight 98 kg (216 lb) 08/29/2012 4:01 PM CAREERS ADVISER Height 161.3 cm (5' 3.5) 08/29/2012 4:01 PM CAREERS ADVISER Body Mass Index 37.66 08/29/2012 4:01 PM CAREERS ADVISER Plan of Treatment Health Maintenance Due Date [...]
--- OUTSIDE RECORDS SUMMARY | 2025-05-01 11:38 | XMS_ITS | Clinical Summary ---
Author Organization [facility] Address [address] [place] [address] Care Team Providers Care Director Of Solutions Architecture Name Role Phone Ifrah Lerma MD Primary Care Provider [phone] Source Comments [facility],non-owned Affiliates and Associated Physician Practices is amultiple site organization consisting of ambulatory clinics and hospital sitesin [place], [place], [place] and [place]. This disclosure is being madepursuant to the Care Everywhere program and may not contain all information available regarding this patient. 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
[2025-05-01 11:48] LABS: INR 1.4; Partial Thromboplastin Time 31.4 Seconds (22.3-36.8); Prothrombin Time 16.9 Seconds (11.1-14.7)
[2025-05-01 11:53] LABS: Alanine Aminotransferase 20 U/L (6-35); Albumin Level 4.0 g/dL (3.5-5.1); Alkaline Phosphatase 85 U/L (38-126); Anion Gap 6 mmol/L (4-12); Aspartate Amino Transferase 21 U/L (14-36); Bilirubin,Total 0.8 mg/dL (0.2-1.3); Blood Urea Nitrogen 13 mg/dL (7-17); Calcium 8.8 mg/dL (8.4-10.2); Carbon Dioxide 28 mmol/L (22-30); Chloride 103 mmol/L (98-107); Estimated CRCL calculation 89 ml/min; Estimated Glomerular Filt Rate > 60; Glucose 88 mg/dL (65-110); Potassium 3.7 mmol/L (3.4-5.0); Sodium 137 mmol/L (137-145); Total Protein 6.7 g/dL (6.3-8.2)
[2025-05-01] MEDS: ENOXAPARIN 100 MG/ML SYRINGE 90 MG SUB-Q ×2 (12:47→20:35)
--- OUTSIDE RECORDS SUMMARY | 2025-05-01 13:13 | XMS_ITS | Clinical Summary ---
Author Organization [facility] Address [address] [place] [address] Care Team Providers Care Chinchilla Farmer Name Role Phone Unavailable Primary Care Provider [...] Comments Blood Pressure 122/78 08/29/2012 4:01 PM ELECTRONICS TECHNOLOGY DEPARTMENT CHAIR Pulse 68 08/29/2012 4:01 PM ELECTRONICS TECHNOLOGY DEPARTMENT CHAIR Temperature - - Respiratory Rate - - Oxygen Saturation - - Inhaled Oxygen Concentration - - Weight 98 kg (216 lb) 08/29/2012 4:01 PM ELECTRONICS TECHNOLOGY DEPARTMENT CHAIR Height 161.3 cm (5' 3.5) 08/29/2012 4:01 PM ELECTRONICS TECHNOLOGY DEPARTMENT CHAIR Body Mass Index 37.66 08/29/2012 4:01 PM ELECTRONICS TECHNOLOGY DEPARTMENT CHAIR Plan of Treatment Health Maintenance Due Date [...]
--- OUTSIDE RECORDS SUMMARY | 2025-05-01 13:13 | XMS_ITS | Clinical Summary ---
Author Organization [address] Address [address] [place] [id number] Care Team Providers Care Horse Show Judge Name Role Phone Ifrah Lerma MD Primary Care Provider [phone] Allergies No known active allergies Medications polyethylene [...] CDT - 04/22/2025 8:33 PM CDT Emergency [facility] Emergency Department 1 [place] [address] Clay Virk MD Popliteal vein thrombosis, right (HCC) (Primary Dx) Discharge Disposition: Discharge to home or self care 03/29/2025 10:55 AM CDT - 03/29/2025 11:59 PM CDT Hospital Encounter [facility] Cardiology 1 [place] [address] Essential (primary) hypertension Discharge Disposition: Discharge to [...] on file 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 KH: RONAL Report ID: [id number] Reading Location: [id number] Procedure Note Jose Angel Villarreal MD - [...] Angel Villarreal M.D. KH: RONAL Report ID: [id number] Reading Location: [place] [address] us Cosme HEDZ IMG US PROCEDURES Final Resu lt * ECG 12 lead (03/29/2025 11:03 AM CDT) 03/29/2025 11:0 1 AM CDT Narrative [facility] - 03/29/2025 12:13 PM CDT Vent Rate: 59 bpm RR Interval: 1008 msec ID Interval: 160 msec QRS Duration: 72 msec QT Interval: 366 msec QTC Interval: 365 msec P-R-T [place]: 34 - -2 - -39 degrees IMPRESSION: SINUS BRADYCARDIA NONSPECIFIC T-WAVE ABNORMALITY BORDERLINE ECG Electronically Signed By: Jamil Balderas MD [facility] Ifrah Lerma MD ECG ORDERABLES Final Result [facility] from Last 3 Months Insurance [facility] OPEN ACCESS Care Teams Horse Show Judge Relationship Specialty Start Date End Date Ifrah Lerma MD [address] [place] [address] PCP - General Family Medicine 04/22/25
--- OUTSIDE RECORDS SUMMARY | 2025-05-01 13:13 | XMS_ITS | Clinical Summary ---
Author Organization [facility] Address [address] [place] [address] Care Team Providers Care Client Partner Name Role Phone Ifrah Lerma MD Primary Care Provider [phone] Source Comments [facility],non-owned Affiliates and Associated Physician Practices is amultiple site organization consisting of ambulatory clinics and hospital sitesin [place], [place], [place] and [place]. This disclosure is being madepursuant to the Care Everywhere program and may not contain all information available regarding this patient. 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
--- NOTE | 2025-05-01 15:57 | ADMGEN ---
This patient, Sintia Burch, was admitted to 2 Medical Room 240-01. Patient/family oriented to hospital policies and general routines including ID bracelet, bed and alarms, visiting hours, pain management, procedures, bathroom and other care routines, personal items, smoking policy, room service/diet, and visiting hours. Information on how to activate the Rapid Response Team has been discussed. Patient/Family are encouraged to report perceived risks to care and to ask questions if they do not understand what they are told or what they should do.
--- NOTE | 2025-05-01 16:41 | PM.IMHP ---
H&P: HPI History of Present Illness Date/Time: 05/01/25 16:41 Chief Complaint: PE on CT scan Narrative: 54-year-old female with a past medical history of hypertension and gastric sleeve presents to the ED on 05/01/2025 after a CTA chest revealed right lower lobe PE after having a dry cough for about 1 week. Patient had a tummy tuck on 04/08 and had a surgical follow-up on 04/18. At the time of the follow-up, she thought she had pulled a muscle in her right leg. The day after her follow-up, she began having pain down and across her leg and noticed a ?soft spongy bump? which prompted her to call her doctor on 04/22/2025 who recommended presenting at the ED to rule out DVT. Right lower extremity Doppler revealed a nonocclusive thrombus within the greater saphenous and popliteal veins. She was discharged from the ED and prescribed Xarelto which she has been compliant with taking 15 mg b.i.d.. The bump in her leg is getting smaller and the pain is improving. Patient went to her PCP on 04/30 and mention she had a dry cough for about 1 week. CTA chest was ordered and completed today, 05/01. Chest CTA revealed a right lower lobe pulmonary embolism possibly chronic. She was directed to the ED. She denies chest pain, shortness a breath, fever. Initial vital signs 139/99, 69 HR, respirations 16, afebrile and 99% on room air. Lab work is largely unremarkable. PT 16.9 EKG with sinus bradycardia, borderline R-wave progression in the anterior leads, age indeterminate T-wave abnormality in anterior leads CTA chest with with right lower lobe pulmonary embolism possibly chronic. Bilateral Venous Doppler study was performed and was negative for DVT in both legs but did show a right greater and lesser saphenous vein thrombus Review of Systems Review of Systems: All systems reviewed & are unremarkable except as noted in HPI and below PMFSH Past Medical History Medical History Hypertension Surgical History Surgical History H/O abdominoplasty (~04/08/25) H/O gastric sleeve Family History Family History Grandparent Diabetes mellitus Cerebrovascular accident Mother Hypertension Family history of cardiovascular disease Father Depression Sibling Hypertension HLD (hyperlipidemia) Social History Social History Smoking status: Never smoker Second hand tobacco smoke exposure: No Alcohol intake: never Drinks per week: 2 Alcohol use details: seldom; socially Substance use: never Substance use type: does not use Lack of Transportation: No Lack of Food: Never True Current Housing: I Have Housing Concerned About Future Housing: No Difficulty Paying Gas/Electric Bills: No Difficulty Paying for Meds: No Currently Unemployed: No Education: Associate Degree Difficulty w/ Childcare or Family Care: No Living arrangements: with family Occupation/Education: occupation Gender identity (if verbalized by the patient): Female Spiritual care concerns: No Agree to blood products: Yes Meds Home Medications and Allergies Home Medications ?Medication ?Instructions ?Recorded ?Confirmed ?Type metoprolol succinate 25 mg 25 mg PO DAILY #30 tabs 02/22/25 05/01/25 Rx tablet,extended release 24 hr buspirone 5 mg tablet See Rx Instructions .Route 04/14/25 05/01/25 Rx .COMPLEX #40 tabs rivaroxaban 15 mg tablet (Xarelto) 15 mg PO BID 04/30/25 05/01/25 History Allergies Allergy/AdvReac Type Severity Reaction Status Date / Time No Known Allergies Allergy Verified 05/01/25 16:00 Vital Signs Vital Signs - 24 hr 05/01/25 10:27 05/01/25 12:54 05/01/25 14:08 Temperature 97.8 F Pulse Rate 69 60 61 Respiratory Rate 16 20 17 Blood Pressure 159/99 H 150/90 H 139/77 Pulse Oximetry 99 93 99 05/01/25 15:01 05/01/25 15:54 05/01/25 16:00 Temperature 98.4 F Pulse Rate 70 72 65 Respiratory Rate 20 18 Blood Pressure 146/84 H 139/89 Pulse Oximetry 100 100 Exam Narrative: GENERAL: non-toxic appearing, in no acute distress. HEAD: Normocephalic, atraumatic. EYES: PERRLA. Conjunctivae clear. NOSE: Normal no drainage. THROAT: Pharynx clear, no exudate. NECK: Trachea midline. No adenopathy, no masses. RESPIRATORY: Airway patent, respirations nonlabored. CTA. No pain on inspiration CARDIOVASCULAR: Regular rate and rhythm BREASTS: Defer GASTROINTESTINAL: Abdomen is soft and nontender. No organomegaly. Bowel sounds normal in all quadrants. GENITOURINARY: Defer MUSCULOSKELETAL: Moves all extremities. No gross deformities. No calf tenderness. No edema to bilateral lower extremities SKIN: Warm, dry, normal color. NEURO: A&O X4. Speech clear PSYCHIATRIC: Normal interaction H&P: Results Labs Labs: Short CBC 05/01/25 Range/Units 11:25 WBC 6.2 (4.5-10.0) K/mm3 Hgb 12.3 (12.0-15.0) g/dL Hct 36.4 L (37.0-47.0) % Plt Count 192 (150-375) k/mm3 BMP 05/01/25 11:25 Sodium 137 Potassium 3.7 Chloride 103 Carbon Dioxide 28 BUN 13 Creatinine 0.69 L Glucose 88 Calcium 8.8 Liver Function 05/01/25 Range/Units 11:25 Total Bilirubin 0.8 (0.2-1.3) mg/dL AST 21 (14-36) U/L ALT 20 (6-35) U/L Alkaline Phosphatase 85 (38-126) U/L Albumin 4.0 (3.5-5.1) g/dL Assessment and Plan Assessment and plan (1) Pulmonary embolism: Qualifiers: Pulmonary embolism type: single subsegmental (without acute cor pulmonale) Qualified Code(s): I26.93 - Single subsegmental thrombotic pulmonary embolism without acute cor pulmonale Code(s): I26.99 - Other pulmonary embolism without acute cor pulmonale Status: Acute Assessment and Plan: Patient with dry cough x1 week. No chest pain or shortness of breath. Had been diagnosed with a noncclusive thrombus within the greater saphenous and popliteal veins in the right leg on 04/22. Patient started on Eliquis starter pack 15 mg p.o. b.i.d. which she has been compliant with. Patient is largely asymptomatic aside from an occasional dry cough. -echo ordered to rule out right heart strain -started Lovenox 90 mg subQ q.12 hours -patient can resume Xarelto on discharge as the PE was likely present before starting Xarelto based on her symptoms and medication compliance (2) Thrombosis of right saphenous vein: Code(s): I82.811 - Embolism and thrombosis of superficial veins of right lower extremity Status: Acute Assessment and Plan: Had been diagnosed with a noncclusive thrombus within the greater saphenous and popliteal veins in the right leg on 04/22. Bilateral venous Dopplers today was negative for DVT in both legs but did show a right greater and lesser saphenous vein thrombus -on Lovenox 90 mg q.12 while inpatient -continue Xarelto at discharge (3) Hypertension: Qualifiers: Hypertension type: primary hypertension Qualified Code(s): I10 - Essential (primary) hypertension Code(s): I10 - Essential (primary) hypertension Status: Acute Assessment and Plan: Patient hypertensive on admit as she did not take her morning medications. -continue with metoprolol succinate 25 mg daily Plan Diet: Regular GI prophylaxis: None DVT prophylaxis: Lovenox lines/drains: PIV Fluids: None Code status: Full Quality VTE Prophylaxis VTE prophylaxis: pharmacologic ordered Hospitalist MIPS Advance Care Plan I have confirmed that the patient's Advanced Care Plan is present, code status is documented, or surrogate decision maker is listed in patient medical record.: Yes Medication Reconciliation I have utilized all available resources to obtain, update and review the patients current medications (includes all prescriptions, OTC, herbals, cannabis, and nutritional supplements).: Yes
[2025-05-01] MEDS: ACETAMINOPHEN 500 MG TABLET 1000 MG PO (20:55)
[2025-05-02] VITALS: PULSE 66
--- NOTE | 2025-05-02 | ECHO_ITS ---
Patient Info Name: Sintia Burch Age: 54 years : 1970 Gender: Female Ht: 63 in Wt: 206 lbs BSA: 2.08 m2 HR: 60 bpm BP: 121 / 66 mmHg Technical Quality: Good Exam Date: 05/02/2025 11:59 AM Patient Status: I Admit Date: 05/01/2025 Exam Type: CA echo doppler color flow Complete two-dimensional, color flow and Doppler transthoracic echocardiogram is performed. Staff Referring Physician: Levi Hidalgo Dry Cleaning Attendant: Jez Burch III Attending Provider: Cristin Betancur MD Summary 1. Complete two-dimensional, color flow and Doppler transthoracic echocardiogram is performed. 2. Left ventricular chamber dimension is mildly enlarged. 3. Left ventricular systolic function is mildly reduced, estimated at 45-50. 4. The left ventricular diastolic function is abnormal. 5. E/e' 16 is elevated. 6. There is mild mitral valve regurgitation. 7. There is trace tricuspid valve regurgitation. 8. No pulmonary hypertension, estimated pulmonary arterial systolic pressure is 32 mmHg. 9. There is trace pulmonic regurgitation. Left Ventricle E/e' 16 is elevated. Left ventricular chamber dimension is mildly enlarged. Left ventricular systolic function is mildly reduced, estimated at 45-50. The left ventricular diastolic function is abnormal. Right Ventricle Right ventricular chamber dimension is normal. Right ventricular systolic function is normal and with normal TAPSE 3.0 cm. Left Atria Left atrial chamber dimension is normal. Right Atria Right atrial chamber dimension is normal. Aortic Valve The aortic valve is trileaflet. There is no aortic valve stenosis. There is no aortic valve regurgitation. Pulmonic Valve There is trace pulmonic regurgitation. Mitral Valve There is no mitral valve stenosis. There is mild mitral valve regurgitation. Tricuspid Valve There is trace tricuspid valve regurgitation. No pulmonary hypertension, estimated pulmonary arterial systolic pressure is 32 mmHg. Pericardium/Pleural There is no pericardial effusion. Inferior Vena Cava Normal inferior vena cava with >50% collapse upon inspiration consistent with normal right atrial pressure, 5 mmHg. Aorta The aortic root size at the sinus of Valsalva is normal. Left Ventricular Outflow Tract Name Value Normal LVOT 2D LVOT Diameter 2.2 cm LVOT Doppler LVOT Peak Velocity 85 cm/s LVOT Peak Gradient 3 mmHg LVOT Mean Gradient 2 mmHg LVOT VTI 21 cm LVOT VTI/AV VTI Ratio 0.7 LVOT Stroke Volume 75 ml LVOT CO 4.4 l/min LVOT CI 2.1 l/min/m2 Pulmonic Valve Name Value Normal PV Doppler PV Peak Velocity 76 cm/s PV Peak Gradient 2 mmHg PV Mean Gradient 1 mmHg Mitral Valve Name Value Normal MV Doppler MV Peak Gradient 8 mmHg MV Mean Gradient 3 mmHg MV Area (Cont Eq VTI) 1.9 cm2 MV Regurgitation Doppler MR Peak Gradient 36 mmHg MV Diastolic Function MV E Peak Velocity 122 cm/s MV A Peak Velocity 82 cm/s MV E/A 1.5 MV Decel Time (PW) 203 ms MV Annular TDI MV E/e' (Septal) 19.2 MV E/e' (Lateral) 13.8 MV E/e' (Average) 16.5 Tricuspid Valve Name Value Normal TV Regurgitation Doppler TR Peak Velocity 261 cm/s TR Peak Gradient 27 mmHg Estimated PAP/RSVP RA Pressure 5 mmHg <=5 PA Systolic Pressure 32 mmHg <36 RV Systolic Pressure 32 mmHg <36 TV Annular TDI TV Lateral Bhargavi s' Velocity 17.2 cm/s >=9.5 Aortic Valve Name Value Normal AV Doppler AV Peak Velocity 141 cm/s AV Peak Gradient 8 mmHg AV Mean Gradient 4 mmHg AV VTI 31 cm AV Area (Cont Eq VTI) 2.4 cm2 >=3.0 AV Area (Cont Eq Frank) 2.2 cm2 AV DI (Frank) 0.61 AV Regurgitation 2D LVOT Area 3.7 cm2 Ventricles Name Value Normal LV Dimensions 2D/MM IVS Diastolic Thickness (2D) 0.9 cm 0.6-1.0 LVID Diastole (2D) 5.3 cm 3.8-5.2 LVIW Diastolic Thickness (2D) 0.8 cm 0.6-0.9 LVID Systole (2D) 4.4 cm 2.2-3.5 LVOT Diameter 2.2 cm LV Mass (2D Cubed) 157.58 g 67.00-162.00 LV Mass Index (2D Cubed) 76 g/m2 43-95 Relative Wall Thickness (2D) 0.30 <=0.42 LV Fractional Shortening/Ejection Fraction 2D/MM LV Fractional Shortening (2D) 17 % 27-45 LV EF (2D Teichholz) 35 % LV Diastolic Volume (4C MOD) 138 ml LV EF (4C MOD) 45 % LV Diastolic Volume (2C MOD) 101 ml LV EF (2C MOD) 48 % LV Diastolic Volume (BP MOD) 118 ml 46-106 LV Diastolic Volume Index (BP MOD) 57 ml/m2 29-61 LV Systolic Volume (BP MOD) 60 ml 14-42 LV Systolic Volume Index (BP MOD) 29 ml/m2 8-24 LV EF (BP MOD) 49 % 54-74 LV Diastolic Length (4C) 8.6 cm LV Systolic Length (4C) 7.4 cm LV Stroke Volume (4C MOD) 62 ml Atria Name Value Normal LA Dimensions LA Volume (4C A-L) 60 ml LA Volume (BP A-L) 57 ml RA Dimensions RA Systolic Major [place] Length (4C) 5.2 cm 2.2-2.8 RA Area (4C) 17.3 cm2 <=18.0 Report Signatures
[2025-05-02 04:00] VITALS: PULSE 63
[2025-05-02 04:48] LABS: Hematocrit 34.5 % (37.0-47.0); Hemoglobin 11.2 g/dL (12.0-15.0); Immature Granulocyte Percent A 0.4 % (0-0.5); Lymphocytes Absolute Auto 1.17 K/mm3 (0.9-3.2); Mean Corpuscular HGB Conc 32.5 g/dl (32-36); Mean Corpuscular Hemoglobin 29.8 pg (26-34); Mean Corpuscular Volume 91.8 fl (80-100); Nucleated Red Blood Cells Absolute Auto 0.000 K/mm3 (0.0-0.012); Nucleated Red Blood Cells Perc 0.0 % (0.0-0.2); Platelet Count Result 157 k/mm3 (150-375); Red Blood Count 3.76 M/mm3 (4.2-5.4); White Blood Count 5.2 K/mm3 (4.5-10.0)
[2025-05-02 05:21] LABS: Alanine Aminotransferase 15 U/L (6-35); Albumin Level 3.4 g/dL (3.5-5.1); Alkaline Phosphatase 82 U/L (38-126); Anion Gap 6 mmol/L (4-12); Aspartate Amino Transferase 24 U/L (14-36); Bilirubin,Total 0.8 mg/dL (0.2-1.3); Blood Urea Nitrogen 10 mg/dL (7-17); Calcium 8.3 mg/dL (8.4-10.2); Carbon Dioxide 25 mmol/L (22-30); Chloride 106 mmol/L (98-107); Estimated CRCL calculation 98 ml/min; Estimated Glomerular Filt Rate > 60; Glucose 86 mg/dL (65-110); Potassium 3.5 mmol/L (3.4-5.0); Sodium 137 mmol/L (137-145); Total Protein 5.9 g/dL (6.3-8.2)
[2025-05-02 06:00] VITALS: BP 121/66; PULSE 60; RESP 18; TEMP 36.5; O2SAT 100
[2025-05-02 08:00] VITALS: PULSE 84
[2025-05-02 08:19] VITALS: PULSE 60
[2025-05-02] MEDS: METOPROLOL SUCCINATE EXT REL 25 MG TABCR PO (08:19)
[2025-05-02] MEDS: ENOXAPARIN 100 MG/ML SYRINGE 90 MG SUB-Q (08:20)
[2025-05-02 12:00] VITALS: PULSE 62
--- NOTE | 2025-05-02 13:54 | PM.DS ---
DS: Admitting Diagnosis Discharge Date 05/02/25 Admitting Diagnosis - DS: Summary Hospital Course Hospital Course: 54-year-old female with a past medical history of hypertension and gastric sleeve presents to the ED on 05/01/2025 after a CTA chest revealed right lower lobe PE after having a dry cough for about 1 week. Patient had a tummy tuck on 04/08 and had a surgical follow-up on 04/18. At the time of the follow-up, she thought she had pulled a muscle in her right leg. The day after her follow-up, she began having pain down and across her leg and noticed a ?soft spongy bump? which prompted her to call her doctor on 04/22/2025 who recommended presenting at the ED to rule out DVT. Right lower extremity Doppler revealed a nonocclusive thrombus within the greater saphenous and popliteal veins. She was discharged from the ED and prescribed Xarelto which she has been compliant with taking 15 mg b.i.d.. The bump in her leg is getting smaller and the pain is improving. Patient went to her PCP on 04/30 and mention she had a dry cough for about 1 week. CTA chest was ordered and completed today, 05/01. Chest CTA revealed a right lower lobe pulmonary embolism possibly chronic. She was directed to the ED. She denies chest pain, shortness a breath, fever. Initial vital signs 139/99, 69 HR, respirations 16, afebrile and 99% on room air. Lab work is largely unremarkable. PT 16.9 EKG with sinus bradycardia, borderline R-wave progression in the anterior leads, age indeterminate T-wave abnormality in anterior leads CTA chest with with right lower lobe pulmonary embolism possibly chronic. Bilateral Venous Doppler study was performed and was negative for DVT in both legs but did show a right greater and lesser saphenous vein thrombus. Patient was placed in observation and echocardiogram was obtained which showed no signs of right heart strain, but did show EF 45-50%, abnormal diastolic function, mild mitral valve regurgitation. EKG with TWI in III, aVF V3, V4, no prior to compare. Patient denies prior history of cardiac workup and has never seen a special effects makeup artist. Patient denies chest pain, shortness of breath or other anginal equivalent. She has lost a significant amount of weight after weight loss surgery and blood pressure has been well controlled. She endorses chronic LE edema that is unchanged. No acute ischemic evaluation is warranted. I recommended the patient establish with a special effects makeup artist as an outpatient. Strict return precautions discussed. In regards to the PE, her symptoms of cough started before she started Xarelto and she has no other symptoms so there is no evidence to suggest Xarelto failure. This is a provoked VTE in setting of recent surgery. She was encouraged to continue her Xarelto starter pack and follow-up with her PCP. Her vitals remained stable while admitted Patient was discharged home in stable condition. Status at Discharge Functional status at discharge: independent ambulation Overall status at discharge: patient is back to baseline Time Spent with Patient Time attestation: Total time spent providing and/or coordinating discharge services: Time spent: Greater than 30 minutes Exam Narrative: General: NAD Eyes: EOMI ENT: neck supple Cardiovascular: Regular rate and rhythm Respiratory: Clear to auscultation, respirations even and unlabored on RA Gastrointestinal: Soft, non tender Genitourinary: no suprapubic tenderness Musculoskeletal: trace BLE edema Skin: warm, dry Neuro: Alert. Psych: Mood appropriate DS: Data Data Completed and Pending Completed studies during hospitalization: ITS Impressions Venous Doppler Study 05/01/25 12:39 IMPRESSION: 1. No DVT either leg. 2. Right greater and lesser saphenous vein thrombus. Labs on day of discharge: Labs from last 24 hours 05/02/25 03:53 WBC 5.2 RBC 3.76 L Hgb 11.2 L Hct 34.5 L MCV 91.8 MCH 29.8 MCHC 32.5 RDW 12.9 Plt Count 157 MPV 11.9 H Immature Gran % (Auto) 0.4 Neut % (Auto) 64.9 Lymph % (Auto) 22.4 Butler % (Auto) 9.0 H Eos % (Auto) 2.9 Baso % (Auto) 0.4 Lymph # (Auto) 1.17 Butler # (Auto) 0.5 Eos # (Auto) 0.2 Baso # (Auto) 0.0 Abs Immat Gran (auto) 0.02 Absolute Neuts (auto) 3.4 Absolute Nucleated RBC 0.000 Nucleated RBC % 0.0 Sodium 137 Potassium 3.5 Chloride 106 Carbon Dioxide 25 Anion Gap 6 BUN 10 Creatinine 0.62 L Estim Creat Clear Calc 98 Estimated GFR > 60 Glucose 86 Calcium 8.3 L Total Bilirubin 0.8 AST 24 ALT 15 Alkaline Phosphatase 82 Total Protein 5.9 L Albumin 3.4 L Discharge Plan Discharge Attending physician on discharge: Cristin Betancur Consulting providers: Monik Obrien Discharging Clinician: Monik Obrien Anticipated Discharge Date/Time: 05/02/25 13:46 Patient Disposition: Home Activity: unlimited Diet: heart healthy Discharge Instructions: Continue to take Xarelto as prescribed. Make appointment with the cardiology office to follow-up on your slightly abnormal echocardiogram (mild systolic and diastolic dysfunction). Return to the emergency department if you develop chest pain, fatigue or shortness of breath with rest or exertion. Follow-up with your primary care provider in one week. Return to the emergency department if you develop chest pain, shortness of breath, persistent fever >100.4, confusion, loss of consciousness. Patient Instructions: Antibiotic Form, Pulmonary Embolism (DC) Patient Language: Malay Stand Alone Forms: General Discharge Information Follow-up/Referrals: Dre Lopez APRN [Primary Care Provider, [facility]] - Call for Appointment Referral Note: follow-up for hospitalization regarding blood clot and abnormal echocardiogram Jayjay Serna DO [Physician, Cardiology] Discharge Medications: Continued Xarelto 15 mg tablet 15 mg PO BID Patient Comments: taking twice a day Rx Instructions: must administer with evening meal metoprolol succinate 25 mg tablet extended release 24 hr 25 mg PO DAILY Qty: 30 6RF buspirone 5 mg tablet See Rx Instructions .ROUTE .COMPLEX Qty: 40 1RF Dose Instruction: TAKE 1 TABLET BY MOUTH TWICE A DAY NEEDED FOR STRESS/ANXIETY Rx Instructions: TAKE 1 TABLET BY MOUTH TWICE A DAY NEEDED FOR STRESS/ANXIETY Date of admission: 05/01/25 13:55 Primary Care Provider: Dre Lopez Admitting Provider: Cristin Betancur Attending physician on admission: Cristin Betancur Condition: Stable
== END 2025-05-02 15:00 | disposition home or self-care (01) ==
LOC: ANHED 14:45 → ANH3MEDSUR 15:02 → ANH2MED 15:46
PROVIDERS: Nurse Practitioner Adult Health; Admitting Provider Family Medicine; Emergency Provider Nurse Practitioner Family; Visit Provider Physician Assistant
DX: I26.99 Other pulmonary embolism without acute cor pulmonale (principal); I82.811 Embolism and thrombosis of superficial veins of right lower extremity; I10 Essential (primary) hypertension; I34.0 Nonrheumatic mitral (valve) insufficiency; R00.1 Bradycardia, unspecified; R94.31 Abnormal electrocardiogram [ECG] [EKG]; Z79.01 Long term (current) use of anticoagulants; Z41.1 Encounter for cosmetic surgery; Z98.84 Bariatric surgery status; Z83.3 Family history of diabetes mellitus; Z82.49 Family history of ischemic heart disease and other diseases of the circulatory system
CPT/HCPCS: 36415; 71275; 80053; 85025; 85610; 85730; 93005; 93306; 93970; 96372; 99285; A9270; G0378; J1650; Q9967